=== PATIENT | male | born 1995 | race American Indian/Alaskan Native ===

== ENCOUNTER 2017-12-17 12:37 | Inpatient (IN) | payer SELFPAY ==
[2017-12-17] MEDS ORDERED: NACL 0.9% 1000 ML 1,000 ML IV ONE (12:47)
[2017-12-17] MEDS ORDERED: MORPHINE IV ONE (12:48)
[2017-12-17] MEDS ORDERED: ZOFRAN IV ONE (12:48)
--- NOTE | 2017-12-17 12:54 | Emergency Department Report ---
ED Chest Pain HPI - General Chief Complaint: Dyspnea/Respdistress Stated Complaint: SOB Time Seen by Provider: 12/17/17 12:47 Source: patient, EMS Mode of arrival: Stretcher Limitations: No Limitations - History of Present Illness Initial Comments: Patient is 22 years old male with a previous history of pneumothorax on the right side secondary to rib fracture. Patient stated that he has sudden onset of right sided chest pain, sharp in nature, does not radiate, increased with deep inspiration. Patient denied any injury to his chest or abdomen or trauma. No fever or cough. MD Complaint: chest pain -: Sudden, This morning Onset: during rest Pain Location: right chest Pain Radiation: none Severity: moderate Quality: sharp Consistency: constant Improves With: nothing Worsens With: inspiration re: denies: nausea, vomting, diaphoresis Other Symptoms: denies: cough, fever, syncope - Related Data Allergies Allergy/AdvReac Type Severity Reaction Status Date / Time No Known Allergies Allergy Unverified 12/17/17 12:44 Heart Score - HEART Score History: Slightly suspicious EKG: Normal Age: < 45 Risk factors: No known risk factors Troponin: < normal limit HEART Score: 0 - Critical Actions Critical Actions: 0-3 pts:0.9-1.7%risk of adverse cardiac event.Candidate for discharge ED Review of Systems ROS: Stated complaint: SOB Other details as noted in HPI Comment: All other systems reviewed and negative Constitutional: denies: chills, fever Respiratory: shortness of breath, SOB with exertion, SOB at rest. denies: cough , orthopnea Cardiovascular: chest pain, palpitations Gastrointestinal: denies: abdominal pain, nausea, vomiting, diarrhea, constipation, hematemesis Musculoskeletal: denies: back pain, joint swelling, arthralgia Neurological: denies: headache, weakness, numbness, paresthesias, confusion, abnormal gait ED Past Medical Hx - Past Medical History Previous Medical History?: Yes Additional medical history: Right Pneumo - Surgical History Past Surgical History?: Yes Additional Surgical History: Chest Tube - Social History Smoking Status: Unknown if ever smoked Substance Use Type: None ED Physical Exam - General Limitations: No Limitations General appearance: alert, in distress - Head Head exam: Present: atraumatic, normocephalic, normal inspection - Eye Eye exam: Present: normal appearance - ENT ENT exam: Present: normal exam, normal orophraynx, mucous membranes moist - Neck Neck exam: Present: normal inspection, tenderness, full ROM. Absent: meningismus, lymphadenopathy, thyromegaly - Respiratory Respiratory exam: Present: normal lung sounds bilaterally, respiratory distress , decreased breath sounds, other (absent breath sounds on the right side). Absent: wheezes, rales, rhonchi, stridor, chest wall tenderness, accessory muscle use, prolonged expiratory - Cardiovascular Cardiovascular Exam: Present: tachycardia, normal heart sounds. Absent: systolic murmur, diastolic murmur, rubs, gallop - GI/Abdominal GI/Abdominal exam: Present: soft, normal bowel sounds. Absent: distended, tenderness, guarding, rebound, rigid, mass, bruit, pulsatile mass, hernia - Extremities Exam Extremities exam: Present: normal inspection, full ROM, normal capillary refill. Absent: tenderness, pedal edema, joint swelling, calf tenderness - Back Exam Back exam: Present: normal inspection, full ROM. Absent: tenderness, CVA tenderness (R), CVA tenderness (L), muscle spasm, paraspinal tenderness, vertebral tenderness - Neurological Exam Neurological exam: Present: alert, oriented X3, CN II-XII intact, normal gait - Skin Skin exam: Present: warm, intact, normal color. Absent: cyanosis ED Course Vital Signs 12/17/17 12/17/17 12/17/17 12:39 14:30 15:35 Temperature 98.2 F Pulse Rate 100 H 92 H Respiratory 24 20 20 Rate Blood Pressure 140/98 Blood Pressure 138/88 [Left] O2 Sat by Pulse 98 100 99 Oximetry 12/17/17 12/17/17 12/17/17 15:36 15:38 16:30 Temperature 98.4 F Pulse Rate 84 77 Respiratory 20 12 18 Rate Blood Pressure Blood Pressure 109/70 126/69 [Left] O2 Sat by Pulse 98 98 Oximetry 12/17/17 18:43 Temperature Pulse Rate Respiratory Rate Blood Pressure Blood Pressure [Left] O2 Sat by Pulse 96 Oximetry - Reevaluation(s) Reevaluation #1: 12/17/17 14:[address] Candelaria, I presented the patient she stated that she will follow-up with the patient for chest tube management. - Chest Tube Chest Tube Location: forth interspace Chest Tube Procedure: betadine prep, sterile drapes applied, sterile dressing applied Anesthesia: 1% Lidocaine Volume Anesthetic (ccs): 5 Antoine of Air Riley: Yes Number of Attempts: 1 Tube Drainage: see nurses notes Tube Sutured to Skin: Yes Post Procedure CXR?: Yes Progress: Patient immediately stated that he feels much better. Patient tolerated procedure very well. No complications. ED Medical Decision Making - Lab Data Result diagrams: 12/17/17 13:05 12/17/17 13:05 - EKG Data -: EKG Interpreted by Me EKG shows normal: sinus rhythm - EKG Data When compared to previous EKG there are: no significant change - Radiology Data Radiology results: report reviewed Referring Physician: SUZIE TOURE Patient Name: ERIN ROBERTSON Date of : 1995 Sex: Male Report Date: 2017-12-17 Report Status: Finalized Findings [facility] [address] [place] [address] XRay Report Signed Patient: ERIN ROBERTSON MR#: [id number] : 1995 Acct:[id number] Age/Sex: 22 / M ADM Date: 12/17/17 Loc: ED Attending Dr: Ordering Physician: SUZIE TOURE Date of Service: 12/17/17 Procedure(s): XR chest 1V ap Accession Number(s): [id number] cc: SUZIE TOURE Fluoro Time In Minutes: AP CHEST: HISTORY: Shortness of breath, chest pain No comparison. There is a very large right pneumothorax estimated at greater than 75%. The left lung is clear. Normal heart and mediastinal structures. Normal bony structures. IMPRESSION: Large right pneumothorax. These findings were discussed with Dr. Toure in the emergency department at 1322 hrs. Transcribed By: TTR Dictated By: ZENON DAVIS JR, MD Electronically Authenticated By: ZENON DAVIS JR, MD Signed Date/Time: 12/17/17 1325 DD/ 1324 TD/TT: 12/17/17 1325 Referring Physician: SUZIE TOURE Patient Name: ERIN ROBERTSON Date of : 1995 Sex: Male Report Date: 2017-12-17 Report Status: Finalized Findings [facility] [address] [place] [address] XRay Report Signed Patient: ERIN ROBERTSON MR#: [id number] : 1995 Acct:[id number] Age/Sex: 22 / M ADM Date: 12/17/17 Loc: 3B-SURG B303-[address]: EILEEN RANDLE MD Ordering Physician: SUZIE TOURE Date of Service: 12/17/17 Procedure(s): XR chest 1V ap Accession Number(s): [id number] cc: SUZIE TOURE Fluoro Time In Minutes: FINAL REPORT EXAM: XR CHEST 1V AP HISTORY: TUBE REPOSITIONING TECHNIQUE: Frontal chest x-ray Comparison: Earlier at 1431 hours FINDINGS: There has been repositioning of the right chest tube. The right lung has now markedly re-expanded. There is no definite pleural reflection of pneumothorax seen in the right lung apex but the right lung apex appears lucent relative to the left and there is suspected residual 20 percent pneumothorax. Left lung is clear. IMPRESSION: Repositioned right chest tube with re-expanded right lung. Probable residual pneumothorax in the right lung apex. Residual platelike atelectasis in the right midlung. Transcribed By: MP Dictated By: AWILDA BUSTOS Electronically Authenticated By: AWILDA BUSTOS Signed Date/Time: 12/17/17 1236 DD/ 1236 TD/TT: 12/17/17 1236 - Medical Decision Making Discuss with doctor Rodrigo, presented the patient to him, he agreed to admit the patient to his service. Critical Care Time: Yes Critical care time in (mins) excluding proc time.: 30 Critical care attestation.: If time is entered above; I have spent that time in minutes in the direct care of this critically ill patient, excluding procedure time. ED Disposition Clinical Impression: Spontaneous pneumothorax, Chest pain, Shortness of breath Disposition: OP ADMIT IP TO THIS HOSP Is pt being admited?: Yes Condition: Stable
[2017-12-17 13:31] LABS: Basophils % (Auto) 0.2 % (0.0-1.8); Eosinophils % (Auto) 0.4 % (0.0-4.3); Hematocrit 44.2 % (35.5-45.6); Hemoglobin 14.4 gm/dl (11.8-15.2); Lymphocytes # (Auto) 0.8 K/mm3 (1.2-5.4); Lymphocytes % (Auto) 14.8 % (13.4-35.0); Mean Corpuscular HGB Conc 33 % (32-34); Mean Corpuscular Hemoglobin 28 pg (28-32); Mean Corpuscular Volume 87 fl (84-94); Monocytes # (Auto) 0.2 K/mm3 (0.0-0.8); Monocytes % (Auto) 3.8 % (0.0-7.3); Platelet Count 234 K/mm3 (140-440); Red Blood Count 5.09 M/mm3 (3.65-5.03)
--- NOTE | 2017-12-17 13:32 | XRay Report ---
AP CHEST: HISTORY: Shortness of breath, chest pain No comparison. There is a very large right pneumothorax estimated at greater than 75%. The left lung is clear. Normal heart and mediastinal structures. Normal bony structures. IMPRESSION: Large right pneumothorax. These findings were discussed with Dr. Jacobson in the emergency department at 1322 hrs.
[2017-12-17] MEDS ORDERED: ATIVAN ONE (13:33)
[2017-12-17] MEDS ORDERED: SUBLIMAZE ONE (13:33)
[2017-12-17] MEDS ORDERED: XYLOCAINE 2% INFILTRATI ONE (13:34)
[2017-12-17 13:39] LABS: Alanine Aminotransferase 14 units/L (7-56); Albumin 4.4 g/dL (3.9-5); BUN/Creatinine Ratio 11; Blood Urea Nitrogen 11 mg/dL (9-20); Calcium 8.7 mg/dL (8.4-10.2); Hemolysis Index 15
[2017-12-17 13:40] LABS: INR 1.02 (0.87-1.13)
[2017-12-17 13:41] LABS: Partial Thromboplastin Time 27.8 Sec. (24.2-36.6)
[2017-12-17] MEDS ORDERED: SUBLIMAZE IV ONE ×3 (13:58→15:00)
[2017-12-17] MEDS ORDERED: ATIVAN IV ONE (13:58)
--- NOTE | 2017-12-17 14:21 | History and Physical Report ---
History of Present Illness Chief complaint: I cant breathe History of present illness: 22 YO Male with Spontaneous Pneumothorax S/P chest tube placement presents to ED for evaluation. Pt states that he experienced an acute onset of Right side chest pain and difficulty breathing this morning. Pt states that pain is worsened with breathing, EMS notified, and patient found to be in respiratory distress. Pt transported to [facility] for evaluation. Pt seen and evaluated in ED and found to have acute respiratory failure secondary to spontaneous pneumothorax. Pt underwent chest tube placement in ED. Surgery team consulted in ED. Pt symptoms improved with chest tube placement. Pt admitted to surgical floor. Past History Past Medical History: other (Pneumothorax) Past Surgical History: Other (chest tube) Social history: single, smoking. denies: alcohol abuse, prescription drug abuse , IV drug use Family history: no significant family history (reviewed) Medications and Allergies Allergies Allergy/AdvReac Type Severity Reaction Status Date / Time No Known Allergies Allergy Unverified 12/17/17 12:44 Review of Systems Constitutional: no weight loss, no weight gain, no fever, no sweats Ears, nose, mouth and throat: no ear pain, no ear discharge, no tinnitis, no decreased hearing, no nose pain, no nasal congestion Cardiovascular: chest pain, shortness of breath Respiratory: shortness of breath, pleurisy, no cough, no cough with sputum Gastrointestinal: no abdominal pain, no nausea, no vomiting, no diarrhea Genitourinary Male: no hematuria, no flank pain, no discharge, no urinary frequency, no urinary hesitancy Rectal: no pain, no incontinence, no bleeding Musculoskeletal: no neck pain, no shooting arm pain, no arm numbness/tingling, no low back pain, no shooting leg pain Integumentary: no rash, no pruritis, no redness, no sores, no wounds Neurological: no transient paralysis, no paralysis, no weakness, no parathesias , no numbness, no tingling, no seizures Psychiatric: no memory loss, no change in sleep habits, no sleep disturbances, no insomnia, no hypersomnia, no change in appetite Endocrine: no cold intolerance, no heat intolerance, no polyphagia, no excessive thirst, no polydipsia, no polyuria Hematologic/Lymphatic: no easy bruising, no easy bleeding Allergic/Immunologic: no urticaria, no allergic rhinitis, no wheezing Exam - Constitutional Vitals: Temp Pulse Resp BP Pulse Ox 98.2 F 100 H 24 140/98 98 12/17/17 12:39 12/17/17 12:39 12/17/17 12:39 12/17/17 12:39 12/17/17 12:39 General appearance: Present: no acute distress, well-nourished - EENT Eyes: Present: PERRL ENT: hearing intact, clear oral mucosa - Neck Neck: Present: supple, normal ROM - Respiratory Respiratory effort: normal Respiratory: right: diminished, bilateral: CTA - Cardiovascular Heart Sounds: Present: S1 & S2. Absent: rub, click - Extremities Extremities: pulses symmetrical, No edema Peripheral Pulses: within normal limits - Abdominal General gastrointestinal: Present: soft, non-tender, non-distended, normal bowel sounds Male genitourinary: Present: normal - Integumentary Integumentary: Present: clear, warm, dry - Musculoskeletal Musculoskeletal: gait normal, strength equal bilaterally - Psychiatric Psychiatric: appropriate mood/affect, intact judgment & insight - Neurologic Neurologic: CNII-XII intact, moves all extremities Results - Labs CBC & Chem 7: 12/17/17 13:05 12/17/17 13:05 Labs: Abnormal lab results 12/17/17 Range/Units 13:05 RBC 5.09 H (3.65-5.03) M/mm3 Lymph # 0.8 L (1.2-5.4) K/mm3 Seg Neutrophils % 80.8 H (40.0-70.0) % Assessment and Plan - Patient Problems (1) Acute respiratory failure Current Visit: Yes Status: Acute Qualifiers: Respiratory failure complication: hypoxia Qualified Code(s): J96.01 - Acute respiratory failure with hypoxia Plan to address problem: supplemental oxygen, nebulizer therpay, Chest tube placement in ED. (2) Spontaneous pneumothorax Current Visit: Yes Status: Acute Plan to address problem: Surgery consulted, repeat CXR, pain control (3) Pain Current Visit: Yes Status: Acute Plan to address problem: Pain control, morphine, and percocet (4) DVT prophylaxis Current Visit: Yes Status: Acute
[2017-12-17] MEDS ORDERED: PROVENTIL IH PRN (14:24)
[2017-12-17] MEDS ORDERED: MILK OF MAGNESIA PO PRN (14:24)
[2017-12-17] MEDS ORDERED: TYLENOL PO PRN (14:24)
[2017-12-17] MEDS ORDERED: MORPHINE IV PRN (14:24)
[2017-12-17] MEDS ORDERED: PERCOCET 5/325 PO PRN (14:24)
[2017-12-17] MEDS ORDERED: DULCOLAX PR PRN (14:24)
[2017-12-17] MEDS ORDERED: ZOFRAN IV PRN (14:24)
[2017-12-17] MEDS ORDERED: TORADOL IV ONE (15:28)
[2017-12-17] MEDS ORDERED: TORADOL ONE (15:30)
--- NOTE | 2017-12-17 15:38 | XRay Report ---
FINAL REPORT EXAM: XR CHEST 1V AP HISTORY: chest pain TECHNIQUE: Frontal chest x-ray 1431 hours on PACs, 2 images Comparison: None FINDINGS: There is a large right pneumothorax. Small bore right chest tube is present, tip pointing apical. The right lung is crumbled inferiorly and medially. There is air outside the chest wall in the intracostal space. There is no definite tension component as the heart and mediastinum maintain midline position. Left lung is clear. Heart size is normal. IMPRESSION: Persistent large right pneumothorax despite chest tube. There is no tension component on the current exam. It is unclear if the chest tube is adequately positioned in the pleural space on single view. If there is a question of the side ports remaining outside the chest wall, recommend advancing the chest tube. Otherwise, CT to ensure location in the pleural space.
--- NOTE | 2017-12-17 15:58 | Consultation ---
History of Present Illness Consult date: 12/17/17 Requesting physician: SUZIE TOURE Chief complaint: pneumothorax - History of present illness History of present illness: 22 yo M with PMHx of right sided PTX 9 months ago presents to ER with c/o sudden onset severe R sided chest and back pain associated with shortness of breath. The patient states he knew his lung collapsed because symptoms were the same as 9 months ago. He was treated at [facility] at that time with a chest tube. He was told that he could have another pneumothorax. The patient had a heimlich chest tube placed in the ER and states he feels better. He has pain around the chest tube site but his shortness of breath has improved. He denies palpitations. He denies trauma or any inciting factors. He smokes marijuana once per day. Past History Past Medical History: other (Pneumothorax Right) Past Surgical History: Other (chest tube) Social history: single, smoking (marijuana). denies: alcohol abuse, prescription drug abuse, IV drug use Family history: no significant family history (reviewed) Medications and Allergies Allergies Allergy/AdvReac Type Severity Reaction Status Date / Time No Known Allergies Allergy Unverified 12/17/17 12:44 Active Meds: Active Medications Acetaminophen (Tylenol) 650 mg PO Q4H PRN PRN Reason: Pain MILD(1-3)/Fever >100.5/BELTRAN Albuterol (Proventil) 2.5 mg IH Q4HRT PRN PRN Reason: Shortness Of Breath Bisacodyl (Dulcolax) 10 mg GA QDAY PRN PRN Reason: Constipation unrelieved by MOM Magnesium Hydroxide (Milk Of Magnesia) 30 ml PO Q4H PRN PRN Reason: Constipation Ondansetron HCl (Zofran) 4 mg IV Q8H PRN PRN Reason: N/V unrelieved by Reglan Tramadol HCl (Ultram) 50 mg PO Q4H PRN PRN Reason: Pain, Moderate (4-6) Review of Systems All systems: negative (see HPI) Exam Vital Signs Temp Pulse Resp BP Pulse Ox 98.2 F 100 H 24 140/98 98 12/17/17 12:39 12/17/17 12:39 12/17/17 12:39 12/17/17 12:39 02/03/18 12:39 Narrative exam: Gen; AAOx3. NAD ENT: no scleral icterus or conjunctival pallor CV: S1, S2+. no m/r/g Resp: CTAB, no w/r/r. Diminished breath sounds right apex. R chest tube in place with +tidling in tubing, small amount of blood tinged drainage, + expiratory air leak. Dressing c/d/i. O2 sat 100% on 2L NC Abd: soft, ND Ext: no c/c/e Results - Labs 12/17/17 13:05 12/17/17 13:05 Abnormal lab results 12/17/17 Range/Units 13:05 RBC 5.09 H (3.65-5.03) M/mm3 Lymph # 0.8 L (1.2-5.4) K/mm3 Seg Neutrophils % 80.8 H (40.0-70.0) % Diabetes panel 12/17/17 Range/Units 13:05 Sodium 142 (137-145) mmol/L Potassium 4.3 (3.6-5.0) mmol/L Chloride 101.8 (98-107) mmol/L Carbon Dioxide 26 (22-30) mmol/L BUN 11 (9-20) mg/dL Creatinine 1.0 (0.8-1.5) mg/dL Glucose 93 (75-100) mg/dL Calcium 8.7 (8.4-10.2) mg/dL AST 18 (5-40) units/L ALT 14 (7-56) units/L Alkaline Phosphatase 80 (35-129) units/L Total Protein 7.1 (6.3-8.2) g/dL Albumin 4.4 (3.9-5) g/dL Calcium panel 12/17/17 Range/Units 13:05 Calcium 8.7 (8.4-10.2) mg/dL Albumin 4.4 (3.9-5) g/dL Pituitary panel 12/17/17 Range/Units 13:05 Sodium 142 (137-145) mmol/L Potassium 4.3 (3.6-5.0) mmol/L Chloride 101.8 (98-107) mmol/L Carbon Dioxide 26 (22-30) mmol/L BUN 11 (9-20) mg/dL Creatinine 1.0 (0.8-1.5) mg/dL Glucose 93 (75-100) mg/dL Calcium 8.7 (8.4-10.2) mg/dL Adrenal panel 12/17/17 Range/Units 13:05 Sodium 142 (137-145) mmol/L Potassium 4.3 (3.6-5.0) mmol/L Chloride 101.8 (98-107) mmol/L Carbon Dioxide 26 (22-30) mmol/L BUN 11 (9-20) mg/dL Creatinine 1.0 (0.8-1.5) mg/dL Glucose 93 (75-100) mg/dL Calcium 8.7 (8.4-10.2) mg/dL Total Bilirubin 0.40 (0.1-1.2) mg/dL AST 18 (5-40) units/L ALT 14 (7-56) units/L Alkaline Phosphatase 80 (35-129) units/L Total Protein 7.1 (6.3-8.2) g/dL Albumin 4.4 (3.9-5) g/dL - Imaging Chest x-ray: report reviewed, image reviewed Assessment and Plan 22 yo M with spontaneous right pneumothorax s/p ER chest tube Plan: 1. post chest tube CXR shows persistent pneumothorax. Per Dr. Toure, tubing was not connected correctly. He addressed this issue. Will repeat CXR 2. continue chest tube to -[id number] suction 3. continue supplemental O2, wean as tolerated 4. incentive spirometer provided to patient, continue 10x/hr and send patient home with IS 5. will obtain CT chest in am since this is patient's second spontaneous PTX on same side. ? etiology. 6. Patient may need thoracic surgery follow up as outpatient 7. PO pain control, avoid narcotics. Patient given toradol in ER and PO pain meds switched to tramadol Thank you for this consultation, please call with any questions or concerns.
--- NOTE | 2017-12-17 16:39 | XRay Report ---
FINAL REPORT EXAM: XR CHEST 1V AP HISTORY: TUBE REPOSITIONING TECHNIQUE: Frontal chest x-ray Comparison: Earlier at 1431 hours FINDINGS: There has been repositioning of the right chest tube. The right lung has now markedly re-expanded. There is no definite pleural reflection of pneumothorax seen in the right lung apex but the right lung apex appears lucent relative to the left and there is suspected residual 20 percent pneumothorax. Left lung is clear. IMPRESSION: Repositioned right chest tube with re-expanded right lung. Probable residual pneumothorax in the right lung apex. Residual platelike atelectasis in the right midlung.
[2017-12-17] MEDS: ULTRAM PO PRN ×2 (18:54→22:01)
[2017-12-17] MEDS ORDERED: AMBIEN PO ONE (22:00)
[2017-12-18] MEDS: ULTRAM PO PRN ×2 (08:29→15:17)
--- NOTE | 2017-12-18 10:01 | Cat Scan Report ---
CT CHEST WITHOUT CONTRAST: HISTORY: Right pneumothorax, shortness of breath. COMPARISON: Multiple recent chest x-rays. TECHNIQUE: Helical CT in 1.25mm intervals without IV contrast. Sagittal and coronal reformatted images. FINDINGS: Thyroid gland: Normal. Tracheobronchial tree: Normal. Esophagus: Normal. Heart: Normal. Pericardium: Normal. Mediastinum: Normal. Lung Arora: A right Heimlich chest tube is in position in the right lateral pleural space. The tube track superiorly to terminate at the level of the right fourth rib. Tiny right apical pneumothorax and a tiny anterior basilar pneumothorax persist. These are estimated at less than 5%. There are minor subpleural atelectatic changes in the right upper lobe and right lower lobe. No underlying parenchymal lung disease is appreciated. The left lung is normal. Musculoskeletal: Normal. Small subcutaneous emphysema is noted throughout the right chest wall. IMPRESSION: Right chest tube placement as described with a tiny right pneumothorax remaining and estimated at less than 5%. Minor atelectatic changes in the right lung.
[2017-12-18] MEDS ORDERED: TORADOL IV ONE (11:20)
--- NOTE | 2017-12-18 11:23 | Progress Note ---
Assessment and Plan 22 yo M with spontaneous right pneumothorax s/p ER chest tube Plan: 1.CT chest reviewed - <5% apical PTX, atelectasis 2. Chest tube to water seal today 3. continue supplemental O2, wean as tolerated 4. incentive spirometery encouraged 10x/hr and please send patient home with IS 5. CXR in am 6. Patient need pulmonology and thoracic surgery follow up as outpatient 7. PO pain control, avoid narcotics. will give a one time dose of toradol IV D/W Dr. Aguirre Thank you for this consultation, please call with any questions or concerns. Subjective Date of service: 12/18/17 Narrative: Pt seen and examined. He is anxious and wants pain medication through IV only. He denies SOB. + pain around chest tube site. Objective Vital Signs - 12hr 12/18/17 12/18/17 12/18/17 00:11 05:47 06:05 Temperature 97.7 F 98.3 F 97.4 F L Pulse Rate 91 H 87 86 Respiratory 18 17 17 Rate Blood Pressure 159/95 117/77 Blood Pressure 146/93 [Left] O2 Sat by Pulse 97 97 96 Oximetry 12/18/17 07:18 Temperature 98.1 F Pulse Rate 78 Respiratory 16 Rate Blood Pressure 125/74 Blood Pressure [Left] O2 Sat by Pulse 99 Oximetry - General physical appearance Narrative Exam: Gen: AAOx3. NAD CV: s1, S2+ Resp: CTAB, diminished breath sounds bilaterally. no w/r/r. R chest tube with very mild forced expiratory air leak which resolved after deep breathing and forced exhalation. Dressing c/d/i - Labs 12/17/17 13:05 12/17/17 13:05 Diabetes panel 12/17/17 Range/Units 13:05 Sodium 142 (137-145) mmol/L Potassium 4.3 (3.6-5.0) mmol/L Chloride 101.8 (98-107) mmol/L Carbon Dioxide 26 (22-30) mmol/L BUN 11 (9-20) mg/dL Creatinine 1.0 (0.8-1.5) mg/dL Glucose 93 (75-100) mg/dL Calcium 8.7 (8.4-10.2) mg/dL AST 18 (5-40) units/L ALT 14 (7-56) units/L Alkaline Phosphatase 80 (35-129) units/L Total Protein 7.1 (6.3-8.2) g/dL Albumin 4.4 (3.9-5) g/dL Calcium panel 12/17/17 Range/Units 13:05 Calcium 8.7 (8.4-10.2) mg/dL Albumin 4.4 (3.9-5) g/dL Pituitary panel 12/17/17 Range/Units 13:05 Sodium 142 (137-145) mmol/L Potassium 4.3 (3.6-5.0) mmol/L Chloride 101.8 (98-107) mmol/L Carbon Dioxide 26 (22-30) mmol/L BUN 11 (9-20) mg/dL Creatinine 1.0 (0.8-1.5) mg/dL Glucose 93 (75-100) mg/dL Calcium 8.7 (8.4-10.2) mg/dL Adrenal panel 12/17/17 Range/Units 13:05 Sodium 142 (137-145) mmol/L Potassium 4.3 (3.6-5.0) mmol/L Chloride 101.8 (98-107) mmol/L Carbon Dioxide 26 (22-30) mmol/L BUN 11 (9-20) mg/dL Creatinine 1.0 (0.8-1.5) mg/dL Glucose 93 (75-100) mg/dL Calcium 8.7 (8.4-10.2) mg/dL Total Bilirubin 0.40 (0.1-1.2) mg/dL AST 18 (5-40) units/L ALT 14 (7-56) units/L Alkaline Phosphatase 80 (35-129) units/L Total Protein 7.1 (6.3-8.2) g/dL Albumin 4.4 (3.9-5) g/dL - Imaging CT scan - chest: report reviewed, image reviewed
--- NOTE | 2017-12-18 13:05 | Progress Note ---
Assessment and Plan Assessment and plan: Spontaneous pneumothorax on right. s/p chest tube placed. Discussed with Dr. Candelaria protein energy malnutrition. Consult French Weaver. DVT prophylaxis, low risk , SCDs only. History Interval history: Patient presented with acute shortness of breath, found to have spontaneous pneumothorax s/p chest tube, Less shortness of breath Hospitalist Physical - Physical exam Narrative exam: GEN APPEARANCE : Not in acute distress, malnourished HEENT: Normocephalic, Atraumatic NECK : supple, no JVD LUNGS: Clear to auscultation bilaterally, no rales, no wheeze,chest tube right HEART: S1 and S2 regular, no murmurs, rubs or gallop, ABD: Soft, non tender, non distended, normal bowel sounds EXT:No edema, no clubbing, no cyanosis NEURO: Awake, alert,oriented x 3 - Constitutional Vitals: Temp Pulse Resp BP Pulse Ox 98.1 F 78 16 125/74 99 12/18/17 07:18 12/18/17 07:18 12/18/17 07:18 12/18/17 07:18 12/18/17 07:18 General appearance: Present: no acute distress, well-nourished Results - Labs CBC & Chem 7: 12/17/17 13:05 12/17/17 13:05 Labs: Laboratory Last Values WBC 5.1 K/mm3 (4.5-11.0) 12/17/17 13:05 RBC 5.09 M/mm3 (3.65-5.03) H 12/17/17 13:05 Hgb 14.4 gm/dl (11.8-15.2) 12/17/17 13:05 Hct 44.2 % (35.5-45.6) 12/17/17 13:05 MCV 87 fl (84-94) 12/17/17 13:05 MCH 28 pg (28-32) 12/17/17 13:05 MCHC 33 % (32-34) 12/17/17 13:05 RDW 14.0 % (13.2-15.2) 12/17/17 13:05 Plt Count 234 K/mm3 (140-440) 12/17/17 13:05 Lymph % (Auto) 14.8 % (13.4-35.0) 12/17/17 13:05 [place] % (Auto) 3.8 % (0.0-7.3) 12/17/17 13:05 Eos % (Auto) 0.4 % (0.0-4.3) 12/17/17 13:05 Baso % (Auto) 0.2 % (0.0-1.8) 12/17/17 13:05 Lymph # 0.8 K/mm3 (1.2-5.4) L 12/17/17 13:05 [place] # 0.2 K/mm3 (0.0-0.8) 12/17/17 13:05 Eos # 0.0 K/mm3 (0.0-0.4) 12/17/17 13:05 Baso # 0.0 K/mm3 (0.0-0.1) 12/17/17 13:05 Seg Neutrophils % 80.8 % (40.0-70.0) H 12/17/17 13:05 Seg Neutrophils # 4.1 K/mm3 (1.8-7.7) 12/17/17 13:05 PT 13.9 Sec. (12.2-14.9) 12/17/17 13:05 INR 1.02 (0.87-1.13) 12/17/17 13:05 APTT 27.8 Sec. (24.2-36.6) 12/17/17 13:05 D-Dimer 135.00 ng/mlDDU (0-234) 12/17/17 13:05 Sodium 142 mmol/L (137-145) 12/17/17 13:05 Potassium 4.3 mmol/L (3.6-5.0) 12/17/17 13:05 Chloride 101.8 mmol/L (98-107) 12/17/17 13:05 Carbon Dioxide 26 mmol/L (22-30) 12/17/17 13:05 Anion Gap 19 mmol/L 12/17/17 13:05 BUN 11 mg/dL (9-20) 12/17/17 13:05 Creatinine 1.0 mg/dL (0.8-1.5) 12/17/17 13:05 Estimated GFR > 60 ml/min 12/17/17 13:05 BUN/Creatinine Ratio 11 % 12/17/17 13:05 Glucose 93 mg/dL (75-100) 12/17/17 13:05 Calcium 8.7 mg/dL (8.4-10.2) 12/17/17 13:05 Total Bilirubin 0.40 mg/dL (0.1-1.2) 12/17/17 13:05 AST 18 units/L (5-40) 12/17/17 13:05 ALT 14 units/L (7-56) 12/17/17 13:05 Alkaline Phosphatase 80 units/L (35-129) 12/17/17 13:05 Total Protein 7.1 g/dL (6.3-8.2) 12/17/17 13:05 Albumin 4.4 g/dL (3.9-5) 12/17/17 13:05 Albumin/Globulin Ratio 1.6 % 12/17/17 13:05
[2017-12-18] MEDS: PERCOCET 5/325 PO PRN (20:39)
[2017-12-19] MEDS: PERCOCET 5/325 PO PRN ×3 (02:30→13:39)
--- NOTE | 2017-12-19 08:35 | XRay Report ---
AP CHEST: HISTORY: Right pneumothorax The right chest tube is in slightly different position since 12/17/17. No recurrent right pneumothorax is visualized. The lungs are clear. Normal heart and mediastinal structures. Trace subcutaneous gas in the right axillary region is noted. IMPRESSION: No recurrent right pneumothorax is identified.
--- NOTE | 2017-12-19 13:58 | Progress Note ---
Assessment and Plan 22 yo M with spontaneous right pneumothorax s/p ER chest tube, now resolved Plan: 1.CXR this am shows no PTX 2. repeat CXR this PM s/p removal of chest tube - if stable, patient may be discharged home 3. incentive spirometery encouraged 10x/hr and please send patient home with IS 4. Patient will need pulmonology and thoracic surgery follow up as outpatient 5. PO OTC pain control on discharge, avoid narcotics D/W Dr. Aguirre Thank you for this consultation, please call with any questions or concerns. Subjective Date of service: 12/19/17 Narrative: Pt seen and examined. Feels well. c/o pain near chest tube site. NO SOB. Objective Vital Signs - 12hr 12/19/17 12/19/17 12/19/17 02:30 04:54 07:29 Temperature 97.9 F 98.5 F Pulse Rate 60 Respiratory 18 16 16 Rate Respiratory Rate [Right Chest] Blood Pressure 125/76 114/67 O2 Sat by Pulse 100 Oximetry 12/19/17 12/19/17 12/19/17 08:14 10:00 11:40 Temperature 98.2 F Pulse Rate 61 Respiratory 0 L 16 Rate Respiratory 16 Rate [Right Chest] Blood Pressure 109/70 O2 Sat by Pulse 99 Oximetry 12/19/17 13:39 Temperature Pulse Rate Respiratory 20 Rate Respiratory Rate [Right Chest] Blood Pressure O2 Sat by Pulse Oximetry - General physical appearance Narrative Exam: Gen: AAOx3. NAD CV: s1, S2+ Resp: CTAB, equal breath sounds b/l. R chest tube to water seal, no leak. Chest tube dressing removed and sutures cut, chest tube removed at end of full inhalation and a small dressing was applied. Patient tolerated this well. A small amount of crepitus is appreciated at the anterior chest wall on the right. - Labs 12/17/17 13:05 12/17/17 13:05
[2017-12-19 16:09] VITALS: BP 137/76
--- NOTE | 2017-12-19 16:10 | XRay Report ---
FINAL REPORT PROCEDURE: Portable AP chest x-ray TECHNIQUE: Chest radiograph portable AP view. CPT 16385 HISTORY: s/p chest tube removal COMPARISON: Prior chest x-ray 12/17/2017 FINDINGS: Small caliber right chest tube has been removed. No pneumothorax visualized. Subcutaneous emphysema seen right lateral chest wall though appears to have decreased since the prior study. Lungs today appear clear. No infiltrates effusions or masses are identified. Heart size and pulmonary vasculature appear normal. There appears to be mild mid thoracic scoliosis convex to the right. No acute bony abnormalities are seen. IMPRESSION: Small caliber right chest tube has been removed. No pneumothorax visualized. Lungs appear well aerated. Subcutaneous emphysema right lateral chest wall appears to have improved slightly. Mild scoliosis..
--- NOTE | 2017-12-19 16:36 | Discharge Summary ---
Providers - Providers Date of Admission: 12/17/17 14:24 Date of discharge: 12/19/17 Attending physician: DC MARSH 12/17/17 14:16 Consult to Physician [CONS] Stat Consulting Provider: CATIE VILLATORO Reason For Exam: chest tube management Notified:: yes 12/19/17 07:46 Consult to Dietitian/Nutrition [CONS] Routine Physician Instructions: Reason For Exam: Reason for Consult: Malnutrition Primary care physician: GLASS FURNACE TENDER Hospitalization Condition: Fair Disposition: DC-01 TO HOME OR SELFCARE Exam - Physical Exam Narrative exam: GEN APPEARANCE : Not in acute distress, malnourished HEENT: Normocephalic, Atraumatic NECK : supple, no JVD LUNGS: Clear to auscultation bilaterally, no rales, no wheeze, HEART: S1 and S2 regular, no murmurs, rubs or gallop, ABD: Soft, non tender, non distended, normal bowel sounds EXT:No edema, no clubbing, no cyanosis NEURO: Awake, alert,oriented x 3 - Constitutional Vitals: Temp Pulse Resp BP Pulse Ox 98.8 F 67 18 137/76 99 12/19/17 16:08 12/19/17 16:08 12/19/17 16:08 12/19/17 16:08 12/19/17 16:08 Plan Activity: advance as tolerated Additional Instructions: 1.Follow up with Primary care physician in 2-3 days. 2.Follow up with Raiza Couch in 1-2 days. 3.Follow up with Dr. Chambers, Cardiothoracic surgeon in 1-2 days. 4.Can return to work after 3 days Follow up with: PRIMARY CARE, [Primary Care Provider] - 3-5 Days Prescriptions: traMADol [Ultram 50 MG tab] 50 mg PO Q6H PRN #12 tablet PRN Reason: Pain, Moderate (4-6)
== END 2017-12-19 17:40 | disposition home or self-care (01) | DRG 199 ==
LOC: ED 12:37 → 3A 14:24 → 3B-SURG 15:20
PROVIDERS: ADMIT Internal Medicine; ATTEND Internal Medicine
PROC: 0W9930Z Drainage of Right Pleural Cavity with Drainage Device, Percutaneous Approach (ICD-10-PCS; principal; 2017-12-17)
DX: J93.83 Other pneumothorax (principal); J96.00 Acute respiratory failure, unspecified whether with hypoxia or hypercapnia; E46 Unspecified protein-calorie malnutrition; F12.10 Cannabis abuse, uncomplicated; Z68.1 Body mass index [BMI] 19.9 or less, adult
CPT/HCPCS: 36415; 71045; 71250; 80053; 85025; 85379; 85610; 85730; 93005; 93010; J1885; J2060; J2270; J2405; J3010; J7030